=== PATIENT | female | born 1985 | race Caucasian/White ===

== ENCOUNTER 2017-07-01 03:57 | Inpatient (IN) | payer BC ==
[2017-07-01] MEDS: Lactated Ringers 1,000 ML IV SCH ×2 (04:17→05:00)
[2017-07-01] MEDS ORDERED: Bupivacaine 0.5% 30 ML SDV ONE (04:42)
[2017-07-01] MEDS ORDERED: Metoclopramide 10 MG/2 ML SDV IVPUSH ONE (04:47)
[2017-07-01] MEDS ORDERED: Sodium Chloride 0.9% 10 ML Syringe FLUSH PRN (04:47)
[2017-07-01] MEDS ORDERED: Citric Acid/Sodium Citrate Solution 30 ML Cup PO ONE (04:47)
[2017-07-01] MEDS ORDERED: ceFAZolin 1 GM Vial ONE (04:55)
[2017-07-01] MEDS ORDERED: Morphine PF 10 MG/10 ML SDV ONE (04:55)
[2017-07-01] MEDS ORDERED: Oxytocin 10 Units/1 ML SDV ONE (04:59)
[2017-07-01] MEDS ORDERED: Oxytocin/Lactated Ringers 10 UNIT/1,000 ML BAG IV SCH (05:00)
[2017-07-01] MEDS ORDERED: Phenylephrine 1% 10 MG/ML SDV ONE (05:01)
--- NOTE | 2017-07-01 05:24 | PCM.LDHP ---
L&D History of Present Illness - General Date of Service: 07/01/17 Admit Problem/Dx: Patient Status Order with Admit Dx/Problem 07/01/17 04:51 Patient Status [ADT] Routine Admission Diagnosis/Problem Admission Diagnosis/Problem Normal labor 07/01/17 05:14 37 3/7 week IUP, history of spontaneous rupture of membranes, history of fourth degree laceration with desire for primary section. Source of Information: Patient History Limitations: Reports: No Limitations - History of Present Illness Introduction:: Yoselin is a 32-year-old 2 para 1001 white female with an SANDEE of 2016 as based upon a certain last menstrual period which started on 10/12/2016. She is admitted into labor and delivery this a.m. with spontaneous rupture of membranes occurring at 0340 hrs. today. She is yareli. She has a history of fourth degree laceration with very difficult recovery and has requested a primary surgery in section to avoid potential recurrence of this. The procedure of primary section, its risks, benefits and follow-up with recovery are discussed in detail with patient. She appears to understand. She wishes to proceed and signed consent. 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 She delivered previous female on 05/22/2014 after 18 hours of labor7 lbs. 9 oz. forceps delivery. Fourth degree laceration with repair. Baby's name is Madison. Patient had a certain last menstrual period 10/12/2016. Cycles are somewhat irregular at 19- 25 days. Menarche age 14. Positive hCG was 11/07/2016. course was significant for multiple evaluations in labor and delivery and in clinic for contractions. She had cervical dilation to 2 cm early in the course of the and was placed on nifedipine to decrease the frequency of contractions. Her group B strep screen is negative. Her EPDS scores 3 out of 30 on 04/08/2017. She has mildly decreased platelet count. She declined genetic testing. She had a normal three-hour glucose tolerance test but failed her 1 hour GTT. Had a history of at least one UTI during the course of . Her weight gain in was from 155.2 pounds up to 187 pounds for a 32 pound weight gain. Her vital signs are stable throughout the course. Her fundal height growth was appropriate. Laboratory testing: Blood is AB+. Antibody screen is negative. Hemoglobin is 13.7 on first visit. Platelets are 194,000 then. She is rubella immune. RPR is nonreactive. Urine culture was negative. Hepatitis B and HIV assays were both negative. GC and Chlamydia were both negative. TSH was normal at 0.944 mU/L. Her second trimester testing showed a hemoglobin of 12.0. Platelets are 149,000. One-hour GTT was 136. Three-hour glucose torus test was normal. Platelets on 06/18/2017 around 131,000. Her group B strep screen was negative. Allergies: Ceclor which caused a rash and questionable trouble breathing at the time of her ear tube surgery. Also Percocet which causes hallucination. Medications: 1. Nifedipine 10 mg every 4-6 hours when necessary for contractions repair F2. vitamins daily 3. Calcium 1200 mg supplement daily 4. Zantac when necessary Past medical history: 1. Fourth degree laceration first delivery 2. PUPPs with first 3. Acute ear infections Past surgical history: 1. Ear tubes Family history: mother and father are alive and well. One brother is alive and well. Grandparents1 grandfather with stroke history versus [place] in his 40s. No bleeding, clotting, anesthesia or -related problems noted in the family. Social history: patient is . She works at [employer]. She lives in [place], [place]. Her is Celestine. She does not use any significant loss of alcohol, drugs or tobacco. Review of systems: Ski: Negative Cardiovascular: No chest pain or exercise intolerance. Some palpitations have been noted Respiratory: No shortness of breath GI: No concerns : Changes also Musculoskeletal: No significant concerns Neurologic: Negative. Physical exam her blood pressure on last evaluation clinic was 116/72 her weight was 187. heart rate was 152. In general the patient is a well-developed, well-nourished, pleasant female stated age in no acute distress. Skin is warm and dry without lesions. HEENT, neck and back within normal limits Cardiovascular exam shows regular rate and rhythm without murmurs. Breast exam is deferred Abdomen is protruded with last fundal height at 38 cm in clinic Cervical exam per nurse shows cervix to be 3 cm, 80%, starting to rupture membranes confirmed Extremities and neurological exam grossly within normal limits. Timing/Duration: Reports: hour(s): - Related Data Allergies/Adverse Reactions: Allergies Allergy/AdvReac Type Severity Reaction Status Date / Time cefaclor [From Ceclor] Allergy Anaphylactic Verified 07/01/17 04:38 Shock oxycodone HCl [From Percocet] AdvReac Hallucinati Verified 07/01/17 07:48 ons Home Medications: Home Meds NIFEdipine [Procardia] 10 mg PO Q4H #30 cap 06/09/17 [Rx] Calcium Carbonate [Calcium] 600 mg PO DAILY 07/01/17 [History] Pnv No.122/Iron/Folic Acid [ Multi Tablet] 1 each PO DAILY 07/01/17 [ History] Ranitidine [Zantac] 150 mg PO ASDIRECTED PRN 07/01/17 [History] Social & Family History - Tobacco Use Second Hand Smoke Exposure: No - Alcohol Use Days Per Week of Alcohol Use: 0 - Recreational Drug Use Recreational Drug Use: No H&P Review of Systems - Review of Systems: Review Of Systems: See Below L&D Exam - Exam Exam: See Below - Vital Signs Vital Signs: Last Vital Signs Temp 37.1 C 07/01/17 04:46 Pulse 80 07/01/17 04:46 Resp 16 07/01/17 04:46 BP 130/77 07/01/17 04:46 Pulse Ox 99 07/01/17 04:46 Weight: 84.822 kg - Patient Data Lab Results Last 24 hrs: Laboratory Results - last 24 hr 07/01/17 Range/Units 04:17 WBC 7.54 (3.98-10.04) K/mm3 RBC 4.26 (3.98-5.22) M/mm3 Hgb 13.3 (11.2-15.7) gm/L Hct 38.8 (34.1-44.9) % MCV 91.1 (79.4-94.8) fl MCH 31.2 (25.6-32.2) pg MCHC 34.3 (32.2-35.5) g/dl RDW Std Deviation 44.6 (36.4-46.3) fL Plt Count 130 L (182-369) K/mm3 MPV 11.6 (9.4-12.3) fl Neut % (Auto) 68.7 (34.0-71.1) % Lymph % (Auto) 22.3 (19.3-51.7) % Grayson % (Auto) 7.7 (4.7-12.5) % Eos % (Auto) 0.9 (0.7-5.8) Baso % (Auto) 0.1 (0.1-1.2) % Neut # (Auto) 5.18 (1.56-6.13) K/mm3 Lymph # (Auto) 1.68 (1.18-3.74) K/mm3 [place]ayson # (Auto) 0.58 H (0.24-0.36) K/mm3 Eos # (Auto) 0.07 (0.04-0.36) K/mm3 Baso # (Auto) 0.01 (0.01-0.08) K/mm3 Result Diagrams: 07/01/17 04:17 Problem List Initiated/Reviewed/Updated: Yes Orders Last 24hrs: Active Orders 24 hr Category Date Time Status Patient Status [ADT] Routine ADT 07/01/17 04:51 Active Communication Order [RC] ROUTINE Care 07/01/17 04:51 Active Heart Tones [RC] PER UNIT ROUTINE Care 07/01/17 04:51 Active Peripheral IV Care [RC] . DIRECTED Care 07/01/17 04:52 Active Procedure Site Prep Instruct [RC] ASDIRECTED Care 07/01/17 04:51 Active Verify Patient Consent Obtain [RC] PER UNIT ROUTINE Care 07/01/17 04:51 Active Vital Signs [RC] PFP Care 07/01/17 04:51 Active Nothing Per Oral Diet [DIET] Diet 07/01/17 Breakfast Active TYPE AND SCREEN [BBK] Stat Lab 07/01/17 04:17 Received Lactated Ringers [Ringers, Lactated] 1,000 ml Med 07/01/17 05:00 Active IV ASDIRECTED Oxytocin/Lactated Ringers [Pitocin in LR 10 Units/1,000 Med 07/01/17 05:00 Active ML] 10 unit in 1,000 ml IV ASDIRECTED Sodium Chloride 0.9% [Saline Flush] Med 07/01/17 04:47 Active 10 ml FLUSH ASDIRECTED PRN Peripheral IV Insertion Adult [OM.PC] Routine Oth 07/01/17 04:51 Ordered Schedule Procedure [COMM] Per Unit Routine Oth 07/01/17 04:51 Ordered Resuscitation Status Routine Resus Stat 07/01/17 04:47 Ordered Medication Orders Lactated Ringer's (Ringers, Lactated) 1,000 mls @ 125 mls/hr IV ASDIRECTED LYNDA Oxytocin/Lactated Ringer's (Pitocin In Lr 10 Units/1,000 Ml) 10 unit in 1,000 mls @ 100 mls/hr IV ASDIRECTED LYNDA PRN Reason: Protocol Sodium Chloride (Saline Flush) 10 ml FLUSH ASDIRECTED PRN PRN Reason: Keep Vein Open Assessment/Plan Comment:: Assessment: 1. 37-3/7 week intrauterine , spontaneous rupture membranes in early labor, history of fourth degree laceration secondary to forceps delivery with last -desire for primary section. 2. History of allergy to Ceclor at the time of her ear tubes as a baby 3. Generally healthy female. Plan: 1. Primary lower uterine segment transverse section through Pfannenstiel skin incision under spinal block. The procedure, risks, benefits, possible complications and follow-up along with discussion of alternatives including vaginal delivery are discussed in detail with patient. She appears to understand, wishes to proceed and has signed a consent 2. DVT prophylaxis with SCDs and prepped 3. We'll give a test dose of Ancef to see whether patient has true allergy or not 4. Routine preoperative evaluation with labs.
[2017-07-01] MEDS ORDERED: Lactated Ringers 1,000 ML ONE (05:31)
[2017-07-01] MEDS ORDERED: Ketorolac 30 MG/ML SDV ONE (06:03)
[2017-07-01] MEDS ORDERED: Meperidine PF 50 MG/ML Syringe ONE (06:12)
[2017-07-01] MEDS ORDERED: diphenhydrAMINE 50 MG/ML SDV IVPUSH PRN ×2 (06:18→08:07)
--- NOTE | 2017-07-01 06:20 | PCM.POSTAN ---
POST ANESTHESIA ASSESSMENT - MENTAL STATUS Mental Status: Alert, Oriented - VITAL SIGNS Pulse Rate: 75 SaO2: 96 Resp Rate: 15 Blood Pressure: 102/64 Temperature: 36.6 C - RESPIRATORY Respiratory Status: Respiratory Rate WNL, Airway Patent, O2 Saturation Stable, Supplemental Oxygen - CARDIOVASCULAR CV Status: Pulse Rate WNL, Blood Pressure Stable - GASTROINTESTINAL GI Status: No Symptoms - PAIN Pain Score: 0 - POST OP HYDRATION Hydration Status: Adequate & Stable - OBSERVATIONS Free Text/Narrative:: no anesthesia complications noted
--- NOTE | 2017-07-01 06:22 | PCM.OPNOTE ---
- General Post-Op/Procedure Note Date of Surgery/Procedure: 07/01/17 Operative Procedure(s): Primary lower uterine segment transverse section through Pfannenstiel skin incision Findings: Baby is in vertex presentation. No significant scarring was noted. Uterus tubes and ovaries were consistent with term . The cervix was 3 cm as previously evaluated. Amniotic fluid was clear. Apgars were 7 and 9. Weight was 8 lbs. 0 oz. Baby was born at 0542 hrs. on 07/01/2017 Pre Op Diagnosis: 1. 37-3/7 week intrauterine . 2. History of previous fourth degree laceration with desire for primary section. 3. Spontaneous rupture membranes with early active labor. Post-Op Diagnosis: Same Anesthesia Technique: Spinal Other Anesthesia Type: Local with Marcaine 0.5%20 mL Primary Surgeon: Vaibhav Sanchez Secondary Surgeon: Adryan Dillon Anesthesia Provider: Darren Adler Director Of Child Welfare Services: Ubaldo Hathaway Director Of Child Welfare Services: Lena Orta Fluid Replacement, Intraop: 2,500 Output, Urine Amount: 350 EBL in mLs: 500 Drain/Tube Comments:: Indwelling bladder catheter Complications: None Condition: Good Free Text/Narrative:: Surgery duration: 25 minutes Procedure: Patient was transferred the room and placed in a sitting position. Spinal anesthesia was administered. After confirmation of adequate anesthesia patient was placed in a supine position with a wedge under her right side to facilitate left lateral positioning. The patient was prepped and draped in usual fashion after Mary catheter was placed . The anesthetic was checked and found to be adequate. The Pfannenstiel skin incision was then made carried down to skin subcutaneous and fascial layers. The fascia was then undermined superiorly and inferiorly to allow for adequate operating room the recti muscles midline and preperitoneal fat was bluntly dissected. Peritoneal cavity was entered longitudinally. The vesicouterine peritoneum was then incised transversely and bladder flap was developed. Myometrium was incised transversely to the level of the amniotic sac. This incision was extended bilaterally in a blunt fashion. The amniotic sac was then ruptured resulting clear amniotic fluid. A hand is placed and low uterine segment and the baby's head was brought forth through the incision. The baby was completely delivered using fundal pressure in a routine fashion. The nose and mouth were bulb suctioned. Baby's cord was clamped x2 cut and baby was handed off to attending care team assistant Dr Robins. Placenta was expressed after cord blood was obtained. Uterus was then exteriorized to allow for easier closure. The cervix was assessed and found to be dilated adequately to allow egress of blood. The uterus was closed in 2 layers. The first layer a running locked suture of 0 Monocryl, the second layer a running locked vertical mattress suture of 0 Monocryl. [id number]-[id number] suture was placed at the left incision to control 1 bleeder. Hemostasis confirmed at this time. Sponge instrument needle counts are correct. The uterus was returned to the abdominal cavity and lateral gutters were cleared of blood. Once again sponge needle counts are correct. The anterior abdominal wall was closed with a #1 PDS suture from angle to angle. The subcutaneous area was found to be free of any bleeders. 2 subcutaneous stitches of 0 Monocryl were used to reapproximate the subcutaneous layer. Skin was closed with a running subcuticular stitch of 3-0 Monocryl in a vertical mattress suture fashion using a Librado needle. Prineo mesh/glue was then applied to further approximate the incision. It should be noted that patient received 2 g of Ancef preoperatively for infection prophylaxis and had Pitocin infused after delivery of the placenta to facilitate uterine contraction. She also had sequential compression stockings in place for DVT prophylaxis. Patient was discharged from the operating room in satisfactory condition.
--- NOTE | 2017-07-01 06:22 | PCM.PREANE ---
Preanesthetic Assessment - Anesthesia/Transfusion/Family Hx Anesthesia History: Prior Anesthesia Without Reaction Family History of Anesthesia Reaction: No Transfusion History: No Prior Transfusion(s) - Review of Systems General: No Symptoms Pulmonary: No Symptoms Cardiovascular: No Symptoms Gastrointestinal: No Symptoms Neurological: No Symptoms Other: Reports: None - Physical Assessment NPO Status Date: 07/01/17 NPO Status Time: 03:45 Pulse: 75 O2 Sat by Pulse Oximetry: 96 Respiratory Rate: 15 Blood Pressure: 102/64 Temperature: 36.6 C Vital Signs: Last Vital Signs Temp 36.6 C 07/01/17 06:20 Pulse 75 07/01/17 06:20 Resp 15 07/01/17 06:20 BP 102/64 07/01/17 06:20 Pulse Ox 96 07/01/17 06:20 Height: 1.63 m Weight: 84.822 kg ASA Class: 2 Mental Status: Alert & Oriented x3 Airway Class: Mallampati = 1 Dentition: Reports: Normal Dentition Thyro-Mental Finger Breadths: 3 Mouth Opening Finger Breadths: 3 ROM/Head Extension: Full Lungs: Clear to Auscultation, Normal Respiratory Effort Cardiovascular: Regular Rate, Regular Rhythm - Lab Values: Laboratory Last Values WBC 7.54 K/mm3 (3.98-10.04) 07/01/17 04:17 RBC 4.26 M/mm3 (3.98-5.22) 07/01/17 04:17 Hgb 13.3 gm/L (11.2-15.7) 07/01/17 04:17 Hct 38.8 % (34.1-44.9) 07/01/17 04:17 MCV 91.1 fl (79.4-94.8) 07/01/17 04:17 MCH 31.2 pg (25.6-32.2) 07/01/17 04:17 MCHC 34.3 g/dl (32.2-35.5) 07/01/17 04:17 RDW Std Deviation 44.6 fL (36.4-46.3) 07/01/17 04:17 Plt Count 130 K/mm3 (182-369) L 07/01/17 04:17 MPV 11.6 fl (9.4-12.3) 07/01/17 04:17 Neut % (Auto) 68.7 % (34.0-71.1) 07/01/17 04:17 Lymph % (Auto) 22.3 % (19.3-51.7) 07/01/17 04:17 Dorado % (Auto) 7.7 % (4.7-12.5) 07/01/17 04:17 Eos % (Auto) 0.9 (0.7-5.8) 07/01/17 04:17 Baso % (Auto) 0.1 % (0.1-1.2) 07/01/17 04:17 Neut # (Auto) 5.18 K/mm3 (1.56-6.13) 07/01/17 04:17 Lymph # (Auto) 1.68 K/mm3 (1.18-3.74) 07/01/17 04:17 [place] # (Auto) 0.58 K/mm3 (0.24-0.36) H 07/01/17 04:17 Eos # (Auto) 0.07 K/mm3 (0.04-0.36) 07/01/17 04:17 Baso # (Auto) 0.01 K/mm3 (0.01-0.08) 07/01/17 04:17 Blood Type AB POSITIVE 07/01/17 04:17 Gel Antibody Screen Negative 07/01/17 04:17 - Allergies Allergies/Adverse Reactions: Allergies Allergy/AdvReac Type Severity Reaction Status Date / Time cefaclor [From Ceclor] Allergy Anaphylactic Verified 07/01/17 04:38 Shock oxycodone HCl [From Percocet] Allergy Hallucinati Verified 07/01/17 04:38 ons - Anesthesia Plan Pre-Op Medication Ordered: Antacids - Acknowledgements Anesthesia Type Planned: Spinal Pt an Appropriate Candidate for the Planned Anesthesia: Yes Alternatives and Risks of Anesthesia Discussed w Pt/Guardian: Yes Pt/Guardian Understands and Agrees with Anesthesia Plan: Yes PreAnesthesia Questionnaire Gastrointestinal History: Reports: GERD - SUBSTANCE USE Second Hand Smoke Exposure: No Days Per Week of Alcohol Use: 0 Recreational Drug Use History: No - HOME MEDS Home Medications: Home Meds NIFEdipine [Procardia] 10 mg PO Q4H #30 cap 06/09/17 [Rx] Calcium Carbonate [Calcium] 600 mg PO DAILY 07/01/17 [History] Pnv No.122/Iron/Folic Acid [ Multi Tablet] 1 each PO DAILY 07/01/17 [ History] Ranitidine [Zantac] 150 mg PO ASDIRECTED PRN 07/01/17 [History] - CURRENT (IN HOUSE) MEDS Current Meds: Current Medications Diphenhydramine HCl (Benadryl) 25 mg IVPUSH Q6H PRN PRN Reason: Itching Lactated Ringer's (Ringers, Lactated) 1,000 mls @ 125 mls/hr IV ASDIRECTED LYNDA Oxytocin/Lactated Ringer's (Pitocin In Lr 10 Units/1,000 Ml) 10 unit in 1,000 mls @ 100 mls/hr IV ASDIRECTED LYNDA PRN Reason: Protocol Sodium Chloride (Saline Flush) 10 ml FLUSH ASDIRECTED PRN PRN Reason: Keep Vein Open Discontinued Medications Bupivacaine HCl (Marcaine 0.5%) Confirm Administered Dose 30 ml .ROUTE .STK-MED ONE Stop: 07/01/17 04:43 Cefazolin Sodium (Ancef) Confirm Administered Dose 2 gm .ROUTE .STK-MED ONE Stop: 07/01/17 04:56 Citric Acid/Sodium Citrate (Bicitra Solution) 30 ml PO ONETIME ONE Stop: 07/01/17 04:48 Lactated Ringer's (Ringers, Lactated) Confirm Administered Dose 1,000 mls @ as directed .ROUTE .STK-MED ONE Stop: 07/01/17 05:32 Ketorolac Tromethamine (Toradol) Confirm Administered Dose 30 mg .ROUTE .STK- MED ONE Stop: 07/01/17 06:04 Meperidine HCl (Demerol) Confirm Administered Dose 50 mg .ROUTE .STK-MED ONE Stop: 07/01/17 06:13 Metoclopramide HCl (Reglan) 10 mg IVPUSH ONETIME ONE Stop: 07/01/17 04:48 Morphine Sulfate (Duramorph Pf) Confirm Administered Dose 10 mg .ROUTE .STK-MED ONE Stop: 07/01/17 04:56 Oxytocin (Pitocin) Confirm Administered Dose 10 unit .ROUTE .STK-MED ONE Stop: 07/01/17 05:00 Phenylephrine HCl (Clint-Synephrine) Confirm Administered Dose 10 mg .ROUTE .STK- MED ONE Stop: 07/01/17 05:02
[2017-07-01] MEDS ORDERED: Lanolin 100% Cream 7 GM Tube TOP PRN (08:07)
[2017-07-01] MEDS ORDERED: ePHEDrine 50 MG/ML SDV IVPUSH PRN (08:07)
[2017-07-01] MEDS ORDERED: Dextrose 5%-Lactated Ringers 1,000 ML IV SCH (08:07)
[2017-07-01] MEDS ORDERED: Naloxone 0.4 MG/ML SDV IVPUSH PRN (08:07)
[2017-07-01] MEDS ORDERED: Ondansetron 4 MG/2 ML SDV IV PRN (08:07)
[2017-07-01] MEDS: Simethicone 80 MG Tab.Chew PO SCH ×4 (09:36→21:49)
[2017-07-01] MEDS: Prenatal Multivitamin with Calcium/Folic Acid/Iron Tab PO SCH (09:41)
[2017-07-01] MEDS: Ibuprofen 800 MG Tab PO SCH ×2 (13:11→20:49)
[2017-07-02] MEDS: traMADol 50 MG Tab PO PRN ×3 (03:31→17:08)
[2017-07-02] MEDS: Ibuprofen 800 MG Tab PO SCH (05:30)
[2017-07-02] MEDS: Ibuprofen 600 MG Tab PO PRN ×3 (09:21→20:43)
[2017-07-02] MEDS: Prenatal Multivitamin with Calcium/Folic Acid/Iron Tab PO SCH (09:22)
[2017-07-02] MEDS: Simethicone 80 MG Tab.Chew PO SCH ×4 (09:22→21:53)
--- NOTE | 2017-07-02 09:24 | PCM48HPAN ---
Post Anesthesia Note - EVALUATION WITHIN 48HRS OF ANESTHETIC Vital Signs in Normal Range: Yes Patient Participated in Evaluation: Yes Respiratory Function Stable: Yes Airway Patent: Yes Cardiovascular Function Stable: Yes Hydration Status Stable: Yes Pain Control Satisfactory: Yes Nausea and Vomiting Control Satisfactory: Yes Mental Status Recovered: Yes - COMMENTS/OBSERVATIONS Free Text/Narrative:: Yoselin is up ambulating this morning. No headache and/or numbness/tingling in legs. Does feels some abdominal pain that spreads into her back. The pain medications she is taking are helping with her pain. I encouraged her to let us know if her back pain becomes worse. She feels it is from her incision site.
[2017-07-02] MEDS: Docusate Sodium 100 MG Cap PO PRN (12:27)
--- NOTE | 2017-07-02 13:28 | PCM.SN ---
- Free Text/Narrative Note: Subjective: - Moderate amount of lochia - Ambulating and voiding well - Patient is without difficulty - Has pain in her left shoulder radiating up to her neck - Reports no shortness of breath, no pain on inspiration/expiration Objective: - VS: afebrile, normotensive - Lungs: clear to auscultation in all lung hernandez - CV: regular rate and rhythm, no murmurs - Abdomen: fundus one fingerbreadth below umbilicus, firm, nontender, dressing and incision clean and intact - Extremities: no swelling, no calf tenderness - Labs: HGB 11.4, Plt 112 Assessment: - 32-year-old G2, now P2002 POD#1 who is doing well - Pain in shoulder in neck thought to be referred pain due to air irritating diaphragm during ; continue to monitor Plan: - Routine care - Patient is breast feeding well - Possible d/c tomorrow
[2017-07-03] MEDS: traMADol 50 MG Tab PO PRN ×4 (00:05→19:54)
[2017-07-03] MEDS: Docusate Sodium 100 MG Cap PO PRN (00:06)
[2017-07-03] MEDS: Ibuprofen 600 MG Tab PO PRN ×4 (04:06→23:32)
[2017-07-03] MEDS: Simethicone 80 MG Tab.Chew PO SCH ×4 (08:38→22:06)
[2017-07-03] MEDS: Prenatal Multivitamin with Calcium/Folic Acid/Iron Tab PO SCH (08:38)
--- NOTE | 2017-07-03 08:39 | PCM.SN ---
- Free Text/Narrative Note: Subjective: - Minimal amount of lochia - Ambulating and voiding well - Patient is without difficulty - Pain in left shoulder and neck gone - Mild incisional pain along scar Objective: - VS: afebrile, normotensive - Abdomen: fundus one fingerbreadth below umbilicus, firm, nontender, dressing and incision clean and intact - Extremities: trace edema, no calf tenderness Assessment: - 32-year-old G2, now P2002 POD#2 who is doing well Plan: - Routine care - Patient is breast feeding well - Probable d/c tomorrow - Decrease tramadol to 25mg q4h
[2017-07-04] MEDS: Ibuprofen 600 MG Tab PO PRN (03:42)
--- NOTE | 2017-07-04 06:18 | PCM.DCSUM1 ---
Discharge Summary - Hospital Course Free Text/Narrative:: Yoselin is a 32-year-old 2 now para 2001 white female who was delivered by elective primary section on 07/01/2017. Patient had a previous fourth degree laceration and requested primary section to avoid possibility of recurrence of fourth degree laceration with this delivery. She arrived in labor and delivery in early labor and wish to proceed with a primary section. Please see operative report for details. Patient delivered a Viable 8 lbs. 0 oz baby on 07/01/2017 baby had Apgars of 7 and 9. Baby is born at 0542 hrs. on 07/01/2017. Postoperative patient is done well. She is nursing without problems, ambulating well and has minimal discomfort. She is voiding without concern. She is desiring to be discharged home. Follow-up labs have returned within normal limits with the exception of her hemoglobin which is decreased. - Discharge Data Discharge Date: 07/04/17 Discharge Disposition: Home, Self-Care 01 Condition: Good - Patient Summary/Data Operative Procedure(s) Performed: Primary lower uterine segment transverse section through Pfannenstiel skin incision - Patient Instructions Diet: Regular Diet as Tolerated (Nursing diet was increased calories and calcium as recommended) Activity: As Tolerated (No lifting greater than 15 pounds or driving a car 1 week. May shower. No intercourse or tampons until seen back.) Driving: Do Not Drive Showering/Bathing: May Shower Wound/Incision Care: Keep Operative Site/Wound Site Clean and Dry (Removal of the Prineo mesh is discussed with patient. She was advised how to proceed with this in 2 weeks.) Notify Provider of: Fever, Increased Pain, Swelling and Redness, Drainage, Nausea and/or Vomiting - Discharge Plan Home Medications: Home Meds Calcium Carbonate [Calcium] 600 mg PO DAILY 07/01/17 [History] Pnv No.122/Iron/Folic Acid [ Multi Tablet] 1 each PO DAILY 07/01/17 [ History] Docusate Sodium [Colace] 100 mg PO Q12H PRN #10 cap 07/04/17 [Rx] Ibuprofen [IJD: Ibuprofen] 600 mg PO Q4H PRN #30 tablet 07/04/17 [Rx] traMADol [Ultram] 25 mg PO Q4H PRN #20 tablet 07/04/17 [Rx] Referrals: Vaibhav Sanchez MD [Primary Care Provider] - (Return to clinic-Dr. Sanchez-2 weeks-[facility].) - Discharge Summary/Plan Comment DC Time >30 min.: No Discharge Summary/Plan Comment: Discharge instructions: 1. Discharge home 2. Regular, high fiber, nursing diet with increased calories and calcium as recommended 3. Medications per home medication was printed, discussed with given to the patient. 4. Precautions given concern increased pain, bleeding, temperature, signs/ symptoms of DVT/PE. 5. Return to clinic-Dr. Sanchez-2 weeks-2 weeks-[facility]. Diagnosis: Term -delivered Condition: Good - Patient Data Vitals - Most Recent: Last Vital Signs Temp 36.8 C 07/04/17 03:44 Pulse 64 07/04/17 03:44 Resp 16 07/04/17 03:44 BP 112/69 07/04/17 03:44 Pulse Ox 96 07/04/17 03:44 Weight - Most Recent: 84.822 kg I&O - Last 24 hours: Intake & Output 07/03/17 07/03/17 07/04/17 14:59 22:59 06:59 Intake Total 0 Balance 0 Med Orders - Current: Current Medications Diphenhydramine HCl (Benadryl) 25 mg IVPUSH Q6H PRN PRN Reason: Itching Diphenhydramine HCl (Benadryl) 25 mg IVPUSH Q6H PRN PRN Reason: Itching or Nausea Docusate Sodium (Colace) 100 mg PO Q12H PRN PRN Reason: Constipation Last Admin: 07/03/17 00:06 Dose: 100 mg Emollient Ointment (Lansinoh Hpa) 0 gm TOP ASDIRECTED PRN PRN Reason: Sore Nipples Last Admin: 07/02/17 09:21 Dose: 1 tube Ephedrine Sulfate (Ephedrine Sulfate) 5 mg IVPUSH SEECOMMENT PRN PRN Reason: Other Ibuprofen (Motrin) 600 mg PO Q4H PRN PRN Reason: Pain Last Admin: 07/04/17 03:42 Dose: 600 mg Naloxone HCl (Narcan) 0.1 mg IVPUSH SEECOMMENT PRN PRN Reason: Respiratory Depression Ondansetron HCl (Zofran) 4 mg IV Q8H PRN PRN Reason: Nausea/Vomiting Prenat Multivit/[place]/Iron/Folic Ac ( Plus Iron) 1 each PO DAILY [facility] Last Admin: 07/03/17 08:38 Dose: 1 each Simethicone (Simethicone) 80 mg PO PCBED [facility] Last Admin: 07/03/17 22:06 Dose: 80 mg Tramadol HCl (Ultram) 25 mg PO Q4H PRN PRN Reason: Pain Last Admin: 07/03/17 19:54 Dose: 25 mg Discontinued Medications Bupivacaine HCl (Marcaine 0.5%) Confirm Administered Dose 30 ml .ROUTE .STK-MED ONE Stop: 07/01/17 04:43 Last Admin: 07/01/17 05:40 Dose: 20 ml Cefazolin Sodium (Ancef) Confirm Administered Dose 2 gm .ROUTE .STK-MED ONE Stop: 07/01/17 04:56 Citric Acid/Sodium Citrate (Bicitra Solution) 30 ml PO ONETIME ONE Stop: 07/01/17 04:48 Last Admin: 07/01/17 05:04 Dose: 30 ml Lactated Ringer's (Ringers, Lactated) 1,000 mls @ 125 mls/hr IV ASDIRECTED [facility] Last Admin: 07/01/17 05:00 Dose: 125 mls/hr Oxytocin/Lactated Ringer's (Pitocin In Lr 10 Units/1,000 Ml) 10 unit in 1,000 mls @ 100 mls/hr IV ASDIRECTED [facility] PRN Reason: Protocol Lactated Ringer's (Ringers, Lactated) Confirm Administered Dose 1,000 mls @ as directed .ROUTE .STK-MED ONE Stop: 07/01/17 05:32 Dextrose/Lactated Ringer's (Dextrose 5%-Lactated Ringers) 1,000 mls @ 125 mls/ hr IV ASDIRECTED [facility] Stop: 07/01/17 16:06 Last Admin: 07/01/17 09:36 Dose: 125 mls/hr Ibuprofen (Motrin) 800 mg PO Q8H [facility] Last Admin: 07/02/17 05:30 Dose: 800 mg Ketorolac Tromethamine (Toradol) Confirm Administered Dose 30 mg .ROUTE .STK- MED ONE Stop: 07/01/17 06:04 Meperidine HCl (Demerol) Confirm Administered Dose 50 mg .ROUTE .STK-MED ONE Stop: 07/01/17 06:13 Metoclopramide HCl (Reglan) 10 mg IVPUSH ONETIME ONE Stop: 07/01/17 04:48 Last Admin: 07/01/17 05:01 Dose: 10 mg Morphine Sulfate (Duramorph Pf) Confirm Administered Dose 10 mg .ROUTE .STK-MED ONE Stop: 07/01/17 04:56 Oxytocin (Pitocin) Confirm Administered Dose 10 unit .ROUTE .STK-MED ONE Stop: 07/01/17 05:00 Phenylephrine HCl (Clint-Synephrine) Confirm Administered Dose 10 mg .ROUTE .STK- MED ONE Stop: 07/01/17 05:02 Sodium Chloride (Saline Flush) 10 ml FLUSH ASDIRECTED PRN PRN Reason: Keep Vein Open Tramadol HCl (Ultram) 50 mg PO Q4H PRN PRN Reason: Pain Last Admin: 07/03/17 06:46 Dose: 50 mg *Q Meaningful Use (DIS) - VTE *Q VTE Criteria *Q: - Stroke *Q Stroke Criteria *Q: - AMI *Q AMI Criteria *Q:
[2017-07-04] MEDS: traMADol 50 MG Tab PO PRN (07:01)
[2017-07-04] MEDS: Prenatal Multivitamin with Calcium/Folic Acid/Iron Tab PO SCH (11:15)
[2017-07-04] MEDS: Simethicone 80 MG Tab.Chew PO SCH (11:15)
[2017-07-04 11:32] VITALS: BP 118/68
== END 2017-07-04 10:00 | disposition home or self-care (01) | DRG 540 ==
LOC: JD.OB 03:57 → JD.OBCHECK 03:57 → JD.OB 05:07 → OBSVTOIN 05:42
PROVIDERS: ADMIT Obstetrics & Gynecology; ATTEND Obstetrics & Gynecology
PROC: 10D00Z1 Extraction of Products of Conception, Low, Open Approach (ICD-10-PCS; principal; 2017-07-01)
DX: O42.02 Full-term premature rupture of membranes, onset of labor within 24 hours of rupture (principal); Z3A.37 37 weeks gestation of pregnancy; Z37.0 Single live birth; Z88.8 Allergy status to other drugs, medicaments and biological substances
CPT/HCPCS: 01961; 36415; 85025; 86850; 86900; 86901; A9270-GY; J0690; J1885; J2175; J2270; J2370; J2590; J2765; J7042; J7120